=== PATIENT | male | born 1955 | race Caucasian/White ===

== ENCOUNTER 2019-03-12 17:13 | Observation (INO) | payer MEDICARE ==
[~2019-03-12] VITALS: Ht 162.5 cm; Wt 74.8 kg
[2019-03-12 17:15] VITALS: BP 117/91
--- NOTE | 2019-03-12 17:15 | NUR ---
PLACED ON 2L OF OXYGEN VIA N/C FOR COMFORT. FEELS BETTER WITH OXYGEN IN PLACE.
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
--- NOTE | 2019-03-12 17:41 | NUR ---
PT HAS PRESENTED HIMSELF WITH THREE DIFFERENT NAMES SINCE ARRIVAL. FIRST, EUNICE ESCAMILLA. NEXT, EUNICE FRANCOIS. FINALLY, AND VERIFIED BY AN INSURANCE LOOKUP, JENNY HOLLEY.
[2019-03-12 17:53] LABS: BASO # 0.1 10*3/uL (0.0-0.1); EOS # 0.1 10*3/uL (0.0-0.4); EOS % 1.2 % (1.0-4.0); HEMOGLOBIN 15.1 g/dl (14.0-18.0); LYMPH % 19.4 % (27.0-41.0); MEAN CELL VOLUME 93.9 fl (80.0-94.0); MEAN CORPUSCULAR HGB 30.8 pg (27.0-31.0); MEAN CORPUSCULAR HGB CONC 32.8 g/dl (33.0-37.0); MEAN PLATELET VOLUME 9.8 fl (9.6-12.3); MONO # 0.6 10*3/uL (0.1-1.0); MONO % 6.1 % (3.0-9.0); NEUT # 7.4 10*3/uL (2.3-7.9); NEUT % 70.8 % (47.0-73.0); PLATELET COUNT AUTOMATED 257 10*3/uL (130-400); RED CELL DISTRI WIDTH 13.2 % (0-14.5); WHITE BLOOD COUNT 10.5 10*3/uL (4.8-10.8)
[2019-03-12 18:18] LABS: ALKALINE PHOSPHATASE 60 U/L (45-117); BUN 15 mg/dl (7-24); CHLORIDE 105 mmol/L (98-107); CREATININE 0.79 mg/dL (0.70-1.30); POTASSIUM 3.4 mmol/L (3.5-5.1); SGOT/AST 19 IU/L (3-35); SGPT/ALT 30 U/L (12-78); SODIUM 138 mmol/L (136-145); TOTAL PROTEIN 7.5 gm/dL (6.4-8.2)
[2019-03-12 18:23] LABS: TROPONIN I < 0.015 ng/ml (<0.045)
--- NOTE | 2019-03-12 18:23 | NUR ---
LAB CALLED WITH A CRITICAL: LACTIC ACID OF 4.5. DR BRAXTON NOTIFIED.
--- NOTE | 2019-03-12 18:49 | NUR ---
PT ADVISED OF DECISION TO ADMIT. HE SAYS HE WILL REFUSE ADMISSION. PT IS MORE ALERT AND ORIENTED THAN WHEN HE CAME IN AND APPEARS LESS INTOXICATED.
[2019-03-12 19:12] VITALS: BP 117/91
--- NOTE | 2019-03-12 19:14 | NUR ---
PT STATES HE IS NOT STAYING PT DENIES ANY CHEST PAIN OR SOB AT THIS TIME. MONITOR SHOWING SINUS RHYTHM. MARILEE YANEZ RN.
--- NOTE | 2019-03-12 19:54 | NUR ---
PT RECIEVING FLUIDS AND PREETHI;L HAVE A REPEAT ETOH LEVEL AND IF HE WANTS TO SIGN AMA AFTER HIS LEVEL IS NORMAL. [facility] SPECIALIST MADE AWARE. MARILEE BLANCAS RN.
--- NOTE | 2019-03-12 21:19 | NUR ---
The patient, JENNY HOLLEY, 63, 59, [id number], [id number], presented to the Emergency Department at 1735. The patient's Chief Complaint was COPD EXACERBATION . The patient subsequently left "Against Medical Advice" at 2100. Treatment completed included LABS FLUIDS MEDS CHEST X-RAY . Possible complications and consequences of not following medical advice were clearly explained to the patient by Dr. LAN , and MARILEE YANEZ RN. Assessment of the patient's competence, for making the decision to refuse completion of previously requested exam and treatment, includes alert and oriented. Attempts made to get self involved in persuading the patient to accept, Dr. FOX GARZON,[facility], the physician's recommendations. Discussion included WHY HE NEEDED ADMISSION . The patient's response was I AM NOT STAYING I FEEL FINE . I HAVE NO CHEST PAIN . Family/friends who witnessed the discussion includes . Signatures WERE requested. The patient DID sign the chart; this was witnessed by MARILEE YANEZ RN. The patient's reason for departing, prior to completion of treatment was "refuses to be admitted". The patient's disposition is dc against medical advice, to the care of self. Arrangements have been made for the ED staff to "Call Back" the patient the following day, to inquire about the patient's medical status and encourage JENNY HOLLEY, to seek medical attention, if this has not been completed. MARILEE YANEZ
== END 2019-03-12 21:07 | disposition left against medical advice (07) ==
LOC: ED 17:13 → EDHOLD 18:39 → 5E 19:17
PROVIDERS: Emergency Medicine; ADMIT Emergency Medicine
DX: R07.89 Other chest pain (principal); F10.129 Alcohol abuse with intoxication, unspecified; J44.9 Chronic obstructive pulmonary disease, unspecified; E78.5 Hyperlipidemia, unspecified; Z23 Encounter for immunization